=== PATIENT | female | born 1965 | race Caucasian/White ===

== ENCOUNTER 2021-07-19 14:46 | Outpatient (CLI) | payer OTHER ==
[~2021-07-19] VITALS: Ht 177.8 cm; Wt 90.9 kg
[2021-07-19 14:45] VITALS: BP 112/80; PULSE 86; TEMP 96.6
[~2021-07-19 14:46] MED LIST: CIPRO 100MG TA100 MG; PROTONIX20 MG
[2021-07-19] MEDS ORDERED: HUMIRA PEN40 MG/0.4 SQ (14:58)
[2021-07-19] MEDS ORDERED: ALBUTEROL0.83 MG/ML IH (14:59)
[2021-07-19] MEDS ORDERED: CLARITIN 1010 MG/TAB PO (14:59)
[2021-07-19] MEDS ORDERED: PROVENTIL0.09 MG/A1 IH (14:59)
[2021-07-19 15:00] VITALS: BP 115/87; PULSE 88
[2021-07-19] MEDS ORDERED: CYMBALTA 30MG30 MG PO (15:00)
[2021-07-19] MEDS ORDERED: SINGULAIR 110 MG/TAB PO (15:00)
[2021-07-19] MEDS ORDERED: TOPAMAX50 MG PO (15:04)
[2021-07-19 15:15] VITALS: BP 126/84; PULSE 78
[2021-07-19 15:30] VITALS: BP 117/83; PULSE 77
[2021-07-19 15:45] VITALS: BP 122/84; PULSE 80
[2021-07-19 16:00] VITALS: BP 129/84; PULSE 72; TEMP 98.4
--- NOTE | 2021-07-19 16:15 | NUR ---
Pt tolerated infusion without issue. INT DC'd with catheter intact. Pt escorted out with steady gait to ED entrance.
== END 2021-07-19 16:15 | disposition home or self-care (01) ==
LOC: EUO 14:46
DX: U07.1 COVID-19 (principal)
CPT/HCPCS: Q0244

== ENCOUNTER → 2022-01-26 | Outpatient (CLI) | payer OTHER ==
[~2022-01-26] MED LIST changes: +ALBUTEROL0.83 MG/ML IH; +CLARITIN 1010 MG/TAB PO; +CYMBALTA 30MG30 MG PO; +HUMIRA PEN40 MG/0.4 SQ; +PROVENTIL0.09 MG/A1 IH; +SINGULAIR 110 MG/TAB PO; +TOPAMAX50 MG PO
== END ==
LOC: MC.RAD 09:00
DX: Z12.31 Encounter for screening mammogram for malignant neoplasm of breast (principal); N64.89 Other specified disorders of breast

== ENCOUNTER → 2022-01-30 | Outpatient (CLI) | payer OTHER | LOC: MC.RAD 12:55 | DX: N64.89 Other specified disorders of breast (principal) ==

== ENCOUNTER 2024-07-18 07:34 | Day surgery (SDC) | payer OTHER ==
[~2024-07-18] VITALS: Ht 175.3 cm; Wt 94.3 kg
[~2024-07-18 07:34] MED LIST changes: +CRESTOR5 MG PO; +LR 1,000 ML IV SCH; +OTREXUP 1212.5 MG/0. SQ; +Ondansetron 4 MG/2 ML VIAL IV PRN; +PREDNISONE10 MG PO; +ZEBETA 5MG5 MG PO
[2024-07-18] MEDS ORDERED: FOLIC ACID 11 MG/TA1 PO (08:11)
[2024-07-18] MEDS ORDERED: TOPAMAX50 MG PO (08:12)
[2024-07-18] MEDS ORDERED: LEXAPRO 10MG10 MG PO (08:13)
[2024-07-18] MEDS ORDERED: SYNTHROID0.05 MG/TA PO (08:13)
[2024-07-18] MEDS ORDERED: Lidocaine PF 2% (20 MG/ML) 5 ML VIAL ONE (08:45)
[2024-07-18 09:00] VITALS: BP 128/86; PULSE 66; TEMP 97.8
[2024-07-18 09:07] VITALS: TEMP 97.1
[2024-07-18 09:15] VITALS: BP 127/76; PULSE 61
[2024-07-18 09:30] VITALS: BP 143/78; PULSE 64
--- NOTE | 2024-07-18 14:31 | NUR ---
0915- PT BACK FORM ENDO PROCEDURE TO BAY 6 VIA CART. PT AMBULATED FROM CART TO RECLINER WITH ASSISTANCE. MONITORS ON AND ALARMS SET. CALL LIGHT WITHIN REACH. REPORT RECEIVED BY MALISSA BYERS. PT REQUESTING FOOD AND DRINK. NO OTHER NEEDS AT THIS TIME. 0930- PT TAKING FOOD AND DRINK WELL. NO COMPLICATIONS NOTED. 0950- DISCHARGE PAPERWORK GIVEN TO PT. NO COMPLICATIONS NOTED. 1000- PT TRANSFERRED OUT OF THE HOSPITAL VIA WHEELCHAIR BY NURSES AID TO OWN PRIVATE VEHICLE DRIVEN BY SON.
== END 2024-07-18 10:00 | disposition home or self-care (01) ==
LOC: SDCO 07:34
DX: K22.2 Esophageal obstruction (principal); K21.00 Gastro-esophageal reflux disease with esophagitis, without bleeding; I10 Essential (primary) hypertension; G47.33 Obstructive sleep apnea (adult) (pediatric)
CPT/HCPCS: J2704; J7120